=== PATIENT | male | born 1970 | race Caucasian/White ===

== ENCOUNTER 2019-09-04 06:11 | Emergency (ER) | payer BC, OTHER ==
[~2019-09-04] VITALS: Ht 183 cm; Wt 99.7 kg
[~2019-09-04 06:11] MED LIST: CIPR500T78 PO; HYDR1TAB8 OP; ONDA-42 SL
--- OUTSIDE RECORDS SUMMARY | 2019-09-04 06:24 | XMS REPORT | Clinical Summary ---
Author Author [facility] Organization [facility] Address Unknown Phone Unavailable Care Team Providers Care Gas Engineer Name Role Phone Rahul Mathew MD Unavailable Naman Whittington MD Unavailable Saundra Altamirano RN Unavailable Unavailable Elham Jaramillo RN Unavailable Unavailable No Pcp, Na PCP Unavailable Source Comments Some departments are not documenting in the electronic medical record. If you d o not see the information that you expected, contact Release of Information in [facility] [employer] Information Management department at [phone] for further assistan ce in locating additional records.[facility] Allergies No Known Allergies Medications No known medications Active Problems Problem Noted Date Cancer of kidney 04/09/2014 Cancer Staging: Clinical: T2a, N0 - Uns igned Pathologic: T2a, N0 - Unsigned Overview: 4 week hx of flank pain and gross hemat uria 03/13/14 Labs: Cr 0.8, LDH 119, Alk Phos 74, Ca 9.9, Hg 16.2, Plt 350, WBC 9.2 03/19/14 Whole body scan: No scintigraph ic evidence of bone mets 03/19/14 CT CAP with contrast: Right 8.8 cm lower pole mass extending into renal pelvis, no vein involvement, inde terminate 1.3cm aortocaval node, diverticulosis Right robotic nephrectomy and lymph nod e dissection 04/24/14. Final pathology: A. Lymph node (1), "aortocaval lymph no bisi", excision: There is no evidence of malignancy. (0/ 1) B. Lymph node (1), "right hilar lymph n ode", excision: There is no evidence of malignancy. (0/ 1) C. Kidney, "right kidney", right radica l nephrectomy: Clear cell renal cell carcinoma, Fuhrma n grade 2. See checklist. Comment: KIDNEY: Nephrectomy, Partial or Radical Procedure: Radical nephrectomy Specimen Laterality: Right Tumor Site: Lower pole Tumor Size (largest tumor if multiple) Greatest dimension: 9.5 cm Additional dimensions: 8.0 x 7.5 cm Tumor Focality: Unifocal Macroscopic Extent of Tumor: Tumor exte nsion into pelvicaliceal system: Minor calyx Histologic Type: Clear cell renal cell carcinoma Sarcomatoid Features: Not identified Tumor Necrosis: Present Histologic Grade (Claudia Nuclear Grade ) - G2: Nuclei slightly irregular, approximately 15 5m; nucleoli evident Microscopic Tumor Extension: Tumor exte nsion into pelvicalyceal system Margins: Margins uninvolved by invasive carcinoma Lymph-Vascular Invasion: Not identified Pathologic Staging (pTNM) pT2a N0 Mn/a 07/2014: Stable imaging. No evidence of recurrence. 09/02/15: History, exam, labs, imaging n egative for recurrence. 03/05/16: History, labs, and imaging neg ative for recurrence. 03/07/18: Renal US ERNESTINE, CXR negative, Cr 1.19 01/30/19: CXR and CT scan without eviden ce of recurrence. Cr 1.33. L ast Assessment & Plan: Patient doing well. No issues. No sig ns of recurrence. We discussed the pros and cons of genetic testing. He w ill consider. Otherwise, he will need continued surveillance. -- F/U one year with CXR, ultrasound, a nd labs prior -- Consider genetic testing -- All questions answered Family History Medical History Relation Name Comments Heart Disease Brother Heart Disease Father Cancer Maternal Grandmother Cancer Mother Cancer Sister Relation Name Status Comments Brother Father Maternal Grandmother Mother Sister Social History Date Tobacco Use Types Packs/Day Years Used Current Every Day Smoker Cigarettes 0.5 20 Smokeless Tobacco: Never Used Drinks/Week oz/Week Comments Alcohol Use No Sex Assigned at Date Recorded Not on file Industry Job Start Date Occupation Not on file Not on file Not on file Travel End Travel History Travel Start No recent travel history available. 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 Temperature - - Respiratory Rate 95% 04/26/2014 10:33 AM BUTTER MAKER Oxygen Saturation - - Inhaled Oxygen Concentration 104 kg (229 lb 3.2 oz) 01/30/2019 1:19 PM BUTTER MAKER Weight 182.9 cm (6') 01/30/2019 1:19 PM BUTTER MA[employer] Height 31.09 01/30/2019 1:19 PM BUTTER MAK[employer] Body Mass Index Plan of Treatment Health Maintenance Due Date Last Done Comments HIV SCREENING 01/21/1987 DTAP/TDAP VACCINES (1 - 01/21/1990 Tdap) HEPATITIS C SCREENING 01/21/1990 PHYSICAL (COMPREHENSIVE) 01/21/1990 EXAM INFLUENZA VACCINE 11/23/2019 Results Not on filefrom Last 3 Months Insurance Type Payer Benefit Subscriber ID Effective Phone Address Plan / Dates Group Indemnity 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 needed
--- OUTSIDE RECORDS SUMMARY | 2019-09-04 06:24 | XMS REPORT ---
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 [email or web address] [facility] [employer] [facility] Address [address] [address] Care Team Providers Care Tester [employer] Name Role Phone NO, LOCAL PHYSICIAN Unavailable Unavailable PCP, NONE Unavailable Unavailable Unavailable Unavailable Unavailable Unavailable Allergies The data below is from unstructured sources Allergen Type Severity Reaction Status Last Updated No Known Drug Allergies Active 03/09/14 Encounters Encounter Date Encounter Type Encounter Diagnosis Care Provider Facility Start: Patient encounter NONE PCP [facility] hospital 08-05-2019 procedure [facility] Start: Patient encounter MAMIE FAULKNER MD Not Availab le ([id number]) 03-19-2014 procedure Medical Equipment No Information Goals No Information Immunizations The data below is from unstructured sourcesNo immunization records. Interventions No Information Medications No Information Payers No Information Plan of Treatment The data below is from unstructured sourcesNo plan of care. Problems Problem Problem Date Last Documented Episodic/Chr Provider Classificati Recorded Date onic on Abdominal Abdominal pain, right lower Episodic ENMANUEL LAURA DO pain quadrant (1 source) Diverticulos Diverticulosis of colon (without Chronic MAMIE FAULKNER is and mention of hemorrhage) diverticulit is (1 source) Other Unspecified disorder of kidney and Episodic ENMANUEL LAURA DO diseases of ureter kidney and ureters (2 sources) Procedures The data below is from unstructured sourcesNo known history of procedures. Results No Information Social History No Information Vital Signs The data below is from unstructured sources Vital Response Date/Time Temperature (Fahrenheit) 98.0 degree s F (97.6 - 99.5) Temperature (Calculated Celsius) 36. 56386 degrees C (36.4 - 37.5) Temperature Source Temporal Pulse Rate (adult) 80 bpm (60 - 90) Respiratory Rate 22 bpm (12 - 24) O2 Sat by Pulse Oximetry 96 % (88 - 100) Blood Pressure 162/125 mm Hg Pain Pain Intensity 10 Height (Feet) 6 feet Height (Inches) 0 inches Height (Calculated Centimeters) 182. 873708 cm Weight (Pounds) 220 pounds Weight (Calculated Kilograms) 99.790 322 kilograms Calculated BMI 29.83 Functional Status The data below is from unstructured sourcesNo functional status results. Mental Status No Information Advance Directives Directive Response Recor ded Date/Time Advance Directives No 7:04pm Health Care Power of Senior Grants Officer No 03/09/14 7:04pm Organ Donor No 03/09/14 7:04pm Resuscitation Status Full Code 03/09/14 7:04pm Discharge Instructions No hospital discharge instructions. Additional Source Comments This clinical document has been generated using [employer] software that has been certified by the Office of the National Coordinator for Health Information Technology (ONC 15.99.04.3023.Diam.31.00.0.023939) and the National Committee for Nitrocellulose Maker (NCQA, as an eMeasure certified technology). FOR RECORDS PERTAINING TO PATIENTS WHO ARE OR HAVE BEEN ENROLLED IN A CHEMICAL D EPENDENCY/SUBSTANCE ABUSE PROGRAM, SOME INFORMATION MAY BE OMITTED. This clinica l summary was aggregated from multiple sources. Caution should be exercised in using it in the provision of clinical care. This summary normalizes information from multiple sources, and as a consequence, information in this document may ma terially change the coding, format and clinical context of patient data. In skye tion, data may be omitted in some cases. CLINICAL DECISIONS SHOULD BE BASED ON T HE PRIMARY CLINICAL RECORDS. [employer] provides no warranty or guara ntee of the accuracy or completeness of information in this document.The followi ng information is based on time limited clinical information
--- OUTSIDE RECORDS SUMMARY | 2019-09-04 06:24 | XMS REPORT | Continuity of Care Document ---
Author Organization Unknown Address Unknown Phone Unavailable Allergies Active Description Code Type Severity Reaction Onset Reported/Identified Relationship to Patient Clinical Status Yes No Known Drug Allergies [id number] Drug Allergy Unknown N/A 03/09/2014 Medications There is no data. Problems Date Dx Coded Attending Type Code Diagnosis Diagnosed By 03/09/2014 ENMANUEL SANCHEZ DO Ot 593.9 RENAL URETERAL DIS NOS 03/09/2014 ENMANUEL SANCHEZ DO Ot 789.03 ABDOMINAL PAIN, RIGHT LOWER QUADRANT 03/28/2014 KAUSHIK BREWER, MAMIE Capps Ot 562.1 0 03/28/2014 KAUSHIK BREWER, MAMIE Capps Ot 593.9 04/12/2014 KAUSHIK BREWER, MAMIE Capps Ot 562.1 0 04/12/2014 KAUSHIK BREWER, MAMIE Capps Ot 593.9 09/16/2017 KAUSHIK BREWER, MAMIE Capps Ot 562.1 0 DIVERTICULOSIS COLON (W/O MENT OF HEMORR 09/16/2017 MAMIE FAULKNER MD Ot 593.9 RENAL URETERAL DIS NOS Procedures There is no data. Results There is no data. Encounters ACCT No. Visit Date/Time Discharge Status Pt. Type Provider Facility Loc./Unit Complaint [id number] 08/05/2019 16:20:00 08/05/2019 23:59: 59 CLS Outpatient [facility] [id number] 03/19/2014 11:48:00 015 23:59:59 CLS Outpatient MAMIE FAULKNER MD [facility] CARD RT RENAL MASS [id number] 03/09/2014 18:53:00 015 20:27:00 DIS Emergency ENMANUEL SANCHEZ DO a [facility] ER POSS KIDNEY STONE
[2019-09-04 06:35] VITALS: BP 126/80
--- NOTE | 2019-09-04 06:44 | ED Lower Extremity ---
General Stated Complaint: L FOOT PAIN Source: patient Exam Limitations: no limitations History of Present Illness Date Seen by Provider: Sep 04, 2019 Time Seen by Provider: 06:26 Initial Comments Patient presents to ER by private conveyance with chief complaint that yesterday afternoon he was walking down some stairs and he rolled his left foot causing swelling or oozing and pain. He is not taking anything for the pain but he has been using elevation for His foot as well as rest. No previous injury to the foot. Allergies and Home Medications Allergies Coded Allergies: No Known Drug Allergies (Unverified , 03/09/14) Home Medications Ciprofloxacin HCl 500 Mg Tablet, 500 MG PO BID Prescribed by: ENMANUEL SANCHEZ on 03/09/142017 Hydrocodone Bit/Ibuprofen 1 Each Tablet, 1-2 EACH OP Q4-6HR PRN for PAIN FOR PAIN Prescribed by: ENMANUEL SANCHEZ on 03/09/142017 Hydrocodone/Acetaminophen 1 Each Tablet, 1 EACH PO Q6H PRN for PAIN-BREAKTHROUGH Prescribed by: NHI KRAFT on 09/04/19 0712 Ondansetron Hcl 4 Mg Tab, 4 MG SL Q4H FOR NAUSEA AND VOMITING Prescribed by: ENMANUEL SANCHEZ on 03/09/142017 Patient Home Medication List Home Medication List Reviewed: Yes Review of Systems Constitutional: No chills, No fever, No malaise EENTM: No ear discharge, No ear pain Respiratory: No cough, No short of breath Cardiovascular: No chest pain, No palpitations Gastrointestinal: No abdominal pain, No nausea, No vomiting All Other Systems Reviewed Negative Unless Noted: Yes Past Nbznuvy-Fukqpw-Ubmodr Hx Patient Social History Alcohol Use: Occasionally Uses Recreational Drug Use: No Smoking Status: Current Everyday Smoker Type Used: Cigarettes Recent Foreign Travel: No Contact w/Someone Who Travel: No Seasonal Allergies Seasonal Allergies: No Past Medical History Reproductive Disorders: No Sexually Transmitted Disease: No Physical Exam Vital Signs Vital Signs - First Documented 09/04/19 06:35 Temp 36.2 Pulse 70 Resp 18 B/P (MAP) 126/80 (95) O2 Delivery Room Air Capillary Refill : Height, Weight, BMI Height: 6'0" Weight: 220lbs. oz. 99.707847gu; BMI Method:Stated General Appearance: WD/WN, no apparent distress HEENT: PERRL/EOMI, pharynx normal Cardiovascular: normal peripheral pulses, regular rate, rhythm, no edema Respiratory: no respiratory distress, no accessory muscle use Ankles: bilateral ankle non-tender, bilateral ankle normal inspection, bilateral ankle normal range of motion, bilateral ankle no evidence of injury Feet: right foot non-tender, right foot normal inspection; bilateral foot normal range of motion; right foot no evidence of injury; left foot bone tenderness (fourth and fifth metatarsal), left foot ecchymosis (and lateral dorsum), left foot pain, left foot soft tissue tenderness, left foot swelling (mild) Neurologic/Tendon: normal sensation Neurologic/Psychiatric: alert, normal mood/affect, oriented x 3 Skin: warm/dry, ecchymosis Procedures/Interventions Splinting and Joint Reduction : Pre-Proc Neuro Vasc Exam: normal Post-Proc Neuro Vasc Exam: normal Progress Using the usual fashion we applied a long leg posterior splint. Crutches were unavailable from the [employer] so we provided him with a prescription. Patient tolerated procedure well. Progress/Results/Core Measures Results/Orders My Orders Orders - NHI KRAFT Foot, Left, 3 Views (09/04/19 06:37) Vital Signs/I&O 09/04/19 06:35 Temp 36.2 Pulse 70 Resp 18 B/P (MAP) 126/80 (95) O2 Delivery Room Air Progress Progress Note : Time: 06:44 Progress Note X-ray of the left foot. Diagnostic Imaging Diagonstic Imaging: Xray Plain Films/CT/US/NM/MRI: other (left foot) Comments Minimally displaced fifth metatarsal left foot, closed Reviewed: Reviewed by Me Departure Impression Primary Impression: Fracture of fifth metatarsal bone of left foot Qualified Codes: S92.355A - Nondisplaced fracture of fifth metatarsal bone, left foot, initial encounter for closed fracture Disposition: 01 HOME, SELF-CARE Condition: Stable Departure-Patient Inst. Decision time for Depature: 07:05 Referrals: NO,LOCAL PHYSICIAN (PCP) Primary Care Physician ANT DAO MD Patient Instructions: Foot Fracture (DC), Splint Care Add. Discharge Instructions: Apply ice for the next day 20 minutes on every 2 hours while awake. Tylenol 650 mg every 6 hours as needed for pain. Hydrocodone one tablet every 6 hours as needed for intractable, breakthrough pain. Do not bear weight with your left foot. 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 Call Dr. Dao, orthopedic surgery and request follow-up appointment in 3-5 days. Elevate your foot above the level of your heart when not in use. If you have increased swelling, tingling or loss of sensation in your toes then you should rewrap the Dominic bandage looser and elevate the foot above your heart. Scripts Crutch (Crutch) 1 Each Each EACH MC DAILY for Pain, #2 0 Refills Prov: NHI KRAFT 09/04/19 Hydrocodone/Acetaminophen (Hydrocodone-Acetamin 5-325 mg) 1 Each Tablet 1 EACH PO Q6H PRN for PAIN-BREAKTHROUGH, #10 TAB 0 Refills Prov: NHI KRAFT 09/04/19 Work/School Note: Work Release Form Date Seen in the Emergency Department: Sep 04, 2019 Return to Work: Sep 05, 2019 Restrictions: Need Release from Doctor Other Restrictions Listed Below: Nonweightbearing with left foot until 09/11/19. Copy Copies To 1: ANT DAO MD, TITUS J Sep 04, 2019 06:44
[2019-09-04] MEDS ORDERED: HYDR-83 PO (07:12)
[2019-09-04] MEDS ORDERED: CRUT1EAC7 MC (07:12)
--- NOTE | 2019-09-04 07:36 | Diagnostic Imaging Report ---
HISTORY: Left foot pain after fall TECHNIQUE: 3 views of the left foot, COMPARISON: None FINDINGS: There is an oblique fracture of the mid to distal left 5th metatarsal shaft with minimal dorsal and medial displacement. Joint spaces are preserved and alignment otherwise appears normal. There is no intra-articular extension seen. IMPRESSION: 1. Minimally displaced oblique fracture of the left 5th metatarsal shaft. Dictated by: Dictated on workstation # [id number]
== END 2019-09-04 07:18 | disposition home or self-care (01) ==
LOC: EDUNIT# 06:11 → ER 06:14
DX: S92.352A Displaced fracture of fifth metatarsal bone, left foot, initial encounter for closed fracture (principal); F17.210 Nicotine dependence, cigarettes, uncomplicated; X50.1XXA Overexertion from prolonged static or awkward postures, initial encounter
CPT/HCPCS: 29505; 73630

== ENCOUNTER → 2019-09-07 | Outpatient (CLI) | payer BC ==
[~2019-09-07] MED LIST changes: +CRUT1EAC7 MC; +HYDR-83 PO
== END ==
LOC: ORTHO 09:02
PROVIDERS: ATTEND Orthopaedic Surgery
DX: S92.355A Nondisplaced fracture of fifth metatarsal bone, left foot, initial encounter for closed fracture (principal); X50.9XXA Other and unspecified overexertion or strenuous movements or postures, initial encounter; Z90.5 Acquired absence of kidney; Z90.89 Acquired absence of other organs; Z98.890 Other specified postprocedural states; Z72.0 Tobacco use

== ENCOUNTER → 2019-09-18 | Outpatient (CLI) | payer BC ==
[~2019-09-18] MED LIST changes: +HYDR-3812 PO; -HYDR-83 PO
--- NOTE | 2019-09-18 09:32 | Diagnostic Imaging Report ---
INDICATION: 5th metatarsal fracture, followup. TIME OF EXAM: 9:27 AM. COMPARISON: 09/04/2019. FINDINGS: The obliquely oriented fractures through the distal 5th metatarsal are again noted. The fracture lines remain clearly visible. The alignment is anatomic. The remaining metatarsals and phalanges are intact. The midfoot and hindfoot are unremarkable. IMPRESSION: 5th metatarsal fracture, very similar to the examination of 2 weeks earlier. Fracture lines remain clearly visible without significant callus formation. Dictated by: Dictated on workstation # [id number]
== END ==
LOC: ORTHO 09:08
PROVIDERS: ATTEND Orthopaedic Surgery
DX: S92.355D Nondisplaced fracture of fifth metatarsal bone, left foot, subsequent encounter for fracture with routine healing (principal)
CPT/HCPCS: 73630

== ENCOUNTER → 2019-10-02 | Outpatient (CLI) | payer BC ==
--- NOTE | 2019-10-02 09:04 | Diagnostic Imaging Report ---
INDICATION: Follow-up metatarsal fracture. COMPARISON: 09/18/2019 FINDINGS: 3 radiographic views of the left foot were obtained and again demonstrate nonacute nondisplaced oblique oriented fracture of the 5th metatarsal shaft. There is no significant appreciable periosteal reaction, callus formation, or other evidence of significant interval healing. IMPRESSION: 1. Stable nondisplaced nonacute fracture of the left 5th metatarsal. No significant interval healing is identified. Dictated by: Dictated on workstation # [id number]
== END ==
LOC: ORTHO 08:28
PROVIDERS: ATTEND Orthopaedic Surgery
DX: S92.355D Nondisplaced fracture of fifth metatarsal bone, left foot, subsequent encounter for fracture with routine healing (principal)
CPT/HCPCS: 73630

== ENCOUNTER → 2019-10-16 | Outpatient (CLI) | payer BC ==
--- NOTE | 2019-10-16 09:55 | Diagnostic Imaging Report ---
INDICATION: 5th metatarsal fracture, followup. TECHNIQUE: 3 views of the left foot CORRELATION STUDY: 10/02/2019 FINDINGS: Obliquely oriented fracture through the large portion of the 5th metatarsal shaft is again demonstrated. There is perhaps some mild reparative change along the fracture line, fracture line remains well-visualized. No bridging callus formation. Alignment is generally stable. No new bony abnormality. IMPRESSION: 1. Very little if any interval healing suggested about the obliquely oriented 5th metatarsal shaft fracture. Dictated by: Dictated on workstation # [id number]
== END ==
LOC: ORTHO 09:02
PROVIDERS: ATTEND Orthopaedic Surgery
DX: S92.355D Nondisplaced fracture of fifth metatarsal bone, left foot, subsequent encounter for fracture with routine healing (principal)
CPT/HCPCS: 73630